=== PATIENT | male | born 2000 | race Two or more races ===

== ENCOUNTER 2022-05-29 13:59 | Emergency (ER) | payer SELFPAY ==
[~2022-05-29] VITALS: Ht 165.1 cm; Wt 57.7 kg
[2022-05-29 15:15] VITALS: BP 146/89
[2022-05-29] MEDS ORDERED: KETOROLAC TROMETH 60MG/2ML VIAL IM ONE (16:15)
[2022-05-29] MEDS ORDERED: METH500T22 PO (16:28)
[2022-05-29] MEDS ORDERED: IBUP600T27 PO (16:28)
== END 2022-05-29 16:35 | disposition home or self-care (01) ==
LOC: ER 13:59
DX: S29.011A Strain of muscle and tendon of front wall of thorax, initial encounter (principal); F12.10 Cannabis abuse, uncomplicated; X58.XXXA Exposure to other specified factors, initial encounter; Y93.89 Activity, other specified; Y92.89 Other specified places as the place of occurrence of the external cause; Y99.8 Other external cause status
CPT/HCPCS: 71101; 96372; 99283; J1885